=== PATIENT | male | born 1990 | race Caucasian/White ===

== ENCOUNTER 2017-11-02 04:31 | Emergency (ER) | payer MEDICAID, OTHER ==
[~2017-11-02] VITALS: Ht 172.7 cm; Wt 68.0 kg
[~2017-11-02 04:31] MED LIST: ALBU2.5V3 NEB; ALBU8.5H3 INH; PROM5SYR2 PO
[2017-11-02 04:44] VITALS: Ht 172.7 cm; Wt 68.0 kg
--- NOTE | 2017-11-02 05:03 | ERD ---
ER Documentation Chief Complaint Chief Complaint C/o Dizziness onset one hour unable to relax needs checkup. Denies SI/HI HPI 27-year-old male presents here in emergency department for complaints of feeling palpitations and suddenly felt dizzy after he felt that his left arm was numb. Patient admitted to be feeling very anxious because his left arm was numb after lying on it while sleeping. The numbness in the left hand has improved and better. Patient states that the palpitation and dizziness has also resolved. Patient denies any other symptoms. Patient is not homicidal or suicidal ideations. Patient has had history of anxiety before and it felt the same way per patient. Patient denies any chest pain or palpitations. Patient denies any dyspnea on exertion or dizzy lying down. Patient denies any shortness of breath. ROS All systems reviewed and are negative except as per history of present illness. Medications Home Meds Active Scripts Promethazine HCl/Codeine (Prometh-Codein 6.25-10 mg/5 ml) 5 Ml Syrup, 5 ML PO QHS, #3 OZ Prov:EDILIA FLORES PA-C 10/03/16 Albuterol Sulfate* (Proair HFA*) 8.5 Gm Hfa.aer.ad, 2 PUFF INH Q4, #1 INHALER Prov:EDILIA FLORES PA-C 10/03/16 Albuterol Sulfate* (Albuterol Sulfate* Neb) 0.083%-3 Ml Neb, 2.5 MG NEB Q4 Y for SHORTNESS OF BREATH, #30 EA Prov:EDILIA FLORES PA-C 10/03/16 Allergies Allergies: Coded Allergies: No Known Allergy (Unverified , 10/03/16) PMhx/Soc Medical and Surgical Hx: pt denies Surgical Hx History of Surgery: No Anesthesia Reaction: No Hx Neurological Disorder: No Hx Respiratory Disorders: Yes (asthma) Hx Cardiac Disorders: No Hx Psychiatric Problems: No Hx Miscellaneous Medical Probl: No Hx Alcohol Use: No Hx Substance Use: No Hx Tobacco Use: Yes Smoking Status: Current some day smoker FmHx Family History: No coronary disease, No diabetes, No other Physical Exam Vitals Vital Signs Date Time Temp Pulse Resp B/P Pulse Ox O2 Delivery O2 Flow Rate FiO2 11/02/17 05:06 98.6 85 18 135/74 97 Room Air 11/02/17 04:44 98.6 106 20 156/109 97 Physical Exam GENERAL: The patient is well developed and appropriate for usual state of health, in no apparent distress. CHEST: Clear to auscultation bilaterally. There are no rales, wheezes or rhonchi. HEART: Regular rate and rhythm. No murmurs, clicks, rubs or gallops. No S3 or S4. ABDOMEN: Soft, nontender and nondistended. Good bowel sounds. No rebound or guarding. No gross peritonitis. No gross organomegaly or masses. No Stoll sign or McBurney point tenderness. BACK: No midline or flank tenderness. EXTREMITIES: Equal pulses bilaterally. There is no peripheral clubbing, cyanosis or edema. No focal swelling or erythema. Full range of motion. Grossly neurovascularly intact. NEURO: Alert and oriented. Cranial nerves 2-12 intact. Motor strength in all 4 extremities with 5/5 strength. Sensation grossly intact. Normal speech and gait. SKIN: There is no apparent rash or petechia. The skin is warm and dry. HEMATOLOGIC AND LYMPHATIC: There is no evidence of excessive bruising or lymphedema. No gross cervical, axillary, or inguinal lymphadenopathy. Results 24 hrs EKG was done, read by me and is normal sinus rhythm at a rate of 85, normal axis , there is no ST changes or changes in the EKG that indicates any cardiac emergencies at this time. Patient's EKG was also reviewed by __. Impression : no acute findings on EKG Procedures/MDM Medical decision making: Patient symptoms was likely is consistent with anxiety. Patient's numbness in the left arm most likely is from putting pressure on it, patient has good circulation in the left arm, no symptoms of any neurovascular compromise. No trauma in affected area. No symptoms of any cardiopulmonary emergencies at this time. EKG does not show any acute coronary emergencies at this time. Patient was advised to follow with primary care doctor 1-2 days for reevaluation of symptoms. Patient was advised to return to emergency department for any worsening symptoms. Disposition: Home. Stable Departure Diagnosis: Primary Impression: Numbness Additional Impression: Anxiety Condition: Stable Patient Instructions: Anxiety Reaction RAJESH NAVARRO NP Nov 02, 2017 05:03
[2017-11-02 05:06] VITALS: BP 135/74; PULSE 85; RESP 18; TEMP 98.6
== END 2017-11-02 05:20 | disposition home or self-care (01) ==
LOC: FTE 04:31
DX: R20.0 Anesthesia of skin (principal); F41.9 Anxiety disorder, unspecified; J45.909 Unspecified asthma, uncomplicated; F17.210 Nicotine dependence, cigarettes, uncomplicated
CPT/HCPCS: 93005; Z7502